=== PATIENT | female | born 1980 | race Caucasian/White ===

== ENCOUNTER → 2019-06-30 | Outpatient (CLI) | payer BC ==
[~2019-06-30] MED LIST: ALBUTEROL0.09 MG/A1 IH; CALCIUM CITRAT200 MG PO; IRON65 M1 PO; LEXAPRO10 MG PO; LEXAPRO20 MG PO; MULTIPLE VITAMI1 CAP PO; PREDNISONE20 MG PO; SINGULAIR10 MG PO; VENTOLIN0.09 MG IH; VITAMIN C PO
== END ==
LOC: MC.RAD 08:11
DX: Z12.31 Encounter for screening mammogram for malignant neoplasm of breast (principal)

== ENCOUNTER → 2020-07-03 | Outpatient (CLI) | payer BC | LOC: MC.RAD 07:47 | DX: Z12.31 Encounter for screening mammogram for malignant neoplasm of breast (principal) ==

== ENCOUNTER → 2022-09-19 | Outpatient (CLI) | payer BC | LOC: MC.RAD 08:59 | DX: Z12.31 Encounter for screening mammogram for malignant neoplasm of breast (principal) ==